=== PATIENT | male | born 1960 | race Asian ===

== ENCOUNTER 2020-12-18 08:38 | Day surgery (SDC) | payer MEDICAID, SELFPAY ==
[~2020-12-18] VITALS: Ht 170.2 cm; Wt 81.6 kg
[2020-12-18] MEDS ORDERED: LR 1,000 ML IV.SOLN IV ONE (10:16)
[2020-12-18] MEDS ORDERED: SEVOFLURANE 15 MIN GAS INH ONE (10:16)
[2020-12-18] MEDS ORDERED: ONDANSETRON HCL 4 MG/2 ML VIAL IVP ONE (10:16)
[2020-12-18] MEDS ORDERED: SUCCINYLCHOLINE CHLORIDE 20 MG/ML(QUELICIN) IVP ONE (10:16)
[2020-12-18] MEDS ORDERED: DEXAMETHASONE SOD PHOSPHATE 4 MG/ML VIAL IVP ONE (10:16)
[2020-12-18] MEDS ORDERED: NS IRRIG SOLN 1000 ML IR ONE (10:16)
[2020-12-18] MEDS ORDERED: LIDOCAINE 2%, 20 ML MDV INJ ONE (10:16)
[2020-12-18] MEDS ORDERED: LIDOCAINE 1% 10 MG/ML, 20 ML MDV INJ ONE (10:16)
[2020-12-18] MEDS ORDERED: LIDOCAINE/EPI 1% 1:100000 20 ML VIAL INJ ONE (10:16)
[2020-12-18] MEDS ORDERED: PROPOFOL 200MG/ 20ML VIAL (DIPRIVAN) IV ONE (10:16)
[2020-12-18] MEDS ORDERED: ROCURONIUM BROMIDE 10 MG/ML (ZEMURON) IV ONE (10:16)
[2020-12-18] MEDS ORDERED: MIDAZOLAM HCL 5 MG/5 ML VIAL IVP ONE (10:16)
[2020-12-18] MEDS ORDERED: fentaNYL CITRATE 250 MCG/5 ML AMP IV ONE (10:16)
[2020-12-18] MEDS ORDERED: ACETAMINOPHEN I.V. 1000 MG 100 ML IV ONE (11:24)
[2020-12-18] MEDS: LR 1,000 ML IV SCH ×2 (11:30→21:30)
[2020-12-18] MEDS ORDERED: METOCLOPRAMIDE HCL 10 MG/2 ML VIAL IVP PRN (11:30)
[2020-12-18] MEDS ORDERED: HYDROmorphone 1 MG/ML INJ. CARTRIDGE IVP PRN ×2 (11:30)
[2020-12-18] MEDS ORDERED: ONDANSETRON HCL 4 MG/2 ML VIAL IVP PRN ×3 (11:30→15:30)
[2020-12-18] MEDS ORDERED: MIDAZOLAM HCL 2 MG/2 ML VIAL (VERSED) IVP PRN (11:30)
[2020-12-18] MEDS ORDERED: LABETALOL 100 MG/ 20ML VIAL IVP PRN (11:30)
[2020-12-18] MEDS ORDERED: MEPERIDINE HCL/PF 25 MG/ML DISP.SYRIN IVP PRN (11:30)
[2020-12-18] MEDS ORDERED: hydrALAZINE HCL 20 MG/ML VIAL IVP PRN (11:30)
[2020-12-18] MEDS ORDERED: HYDROcodone/ACETAMIN 5-325 MG TAB (NORCO/ VICODIN) PO PRN ×4 (15:00→15:30)
[2020-12-18] MEDS ORDERED: 0.45% NACL 1,000 ML IV SCH ×2 (15:00→15:16)
[2020-12-18] MEDS ORDERED: KCL 20 mEq in 0.45% NS 1000 mL 1,000 ML IV SCH (15:00)
[2020-12-18] MEDS ORDERED: MORPHINE 2 MG/ML INJ. SYRINGE IVP PRN ×2 (15:00→15:30)
[2020-12-18] MEDS: 0.45% NACL 1,000 ML IV SCH (15:30)
--- NOTE | 2020-12-18 16:10 | NUR ---
received pt from PACU,awake,alert,alert,s/p total thyroidectomy,dressing in lower neck dry and intact,pt verbalized in slow low tone voice,able to make needs known,vss,needs attended,call light & personal item within pt reach,safety maintained.
[2020-12-18 16:27] VITALS: BP_SYST 124
[2020-12-18] MEDS ORDERED: CALCIUM 500 MG/TAB PO ONE (17:00)
[2020-12-18] MEDS ORDERED: calcitrioL 0.25 MCG CAPSULE PO ONE (17:00)
[2020-12-18] MEDS ORDERED: CALCIUM 500 MG/TAB PO SCH (17:00)
--- NOTE | 2020-12-18 17:00 | NUR ---
came and seen pt at bedside,applied ice pack on incision in neck per dr jackson.labs ordered pending, said he's going to call to follow up results
[2020-12-18 18:11] LABS: ALBUMIN 3.3 g/dL (3.4-4.8); CALCIUM 8.3 mg/dL (8.4-11.0)
--- NOTE | 2020-12-18 19:21 | NUR ---
pt eating well for dinner clear liquid diet,sleeping well in bed,report endorsed to wax specialist nurse.
[2020-12-18 20:00] VITALS: BP_SYST 141
[2020-12-18] MEDS ORDERED: MUPIROCIN 2% TOPICAL OINTMENT 22 GM TP SCH (21:00)
[2020-12-18] MEDS: KCL 20 mEq in 0.45% NS 1000 mL 1,000 ML IV SCH (21:15)
[2020-12-18] MEDS: MUPIROCIN 2% TOPICAL OINTMENT 22 GM TP SCH (21:16)
[2020-12-18] MEDS: CALCIUM 500 MG/TAB PO SCH (21:16)
--- NOTE | 2020-12-18 22:10 | NUR ---
PATIENT IN BED. NO ACUTE DISTRESS NOTED. NO COMPLAINT OF PAIN OR DISCOMFORT. CALLED TO CHECK CURRENT STATUS. WILL CONTINUE TO MONITOR. THIS NURSE ASSISTED PATIENT WITH A BATH.
[2020-12-19] VITALS: BP_SYST 130
[2020-12-19] MEDS: 0.45% NACL 1,000 ML IV SCH (04:00)
[2020-12-19] MEDS: LR 1,000 ML IV SCH (04:00)
[2020-12-19] MEDS: KCL 20 mEq in 0.45% NS 1000 mL 1,000 ML IV SCH (05:16)
[2020-12-19 06:54] LABS: BASOPHILS % (AUTO) 0.2 % (0.0-2.0); HEMATOCRIT 41.2 % (36-54); HEMOGLOBIN 14.1 g/dL (14.0-18.0); LYMPHOCYTES # (AUTO) 2.4 K/uL (1.0-5.5); LYMPHOCYTES % (AUTO) 15.4 % (20.5-51.5); MEAN CORPUSCULAR HEMOGLOBIN 35 pg (27-31); MEAN CORPUSCULAR HGB CONC 34 % (32-36); MEAN CORPUSCULAR VOLUME 102 fL (79.0-98.0); MONOCYTES # (AUTO) 1.2 K/uL (0.0-1.0); MONOCYTES % (AUTO) 7.8 % (1.7-9.3); NEUTROPHILS # (AUTO) 11.9 K/uL (1.8-7.7); NEUTROPHILS % (AUTO) 76.6 % (40.0-70.0); PLATELET COUNT (AUTO) 216 K/uL (130-430); RED BLOOD CELL COUNT(AUTO) 4.02 MIL/uL (4.2-6.2); RED CELL DISTRIBUTION WIDTH 13.9 % (9.0-15.0); WHITE BLOOD COUNT (AUTO) 15.6 K/uL (4.8-10.8)
[2020-12-19 07:13] LABS: ALBUMIN 2.9 g/dL (3.4-4.8); CALCIUM 8.6 mg/dL (8.4-11.0); CREATININE 1.23 mg/dL (0.55-1.30); POTASSIUM 4.2 mmol/L (3.5-5.1)
--- NOTE | 2020-12-19 08:00 | NUR ---
INITIAL NOTE: PATIENT IS ALERT, ORIENTED x4, HAVING SORE THROAT. HE IS OND5 05/02 NS+KCL IVF AT 80 ML/HR, INFUSING WELL VIA LEFT FOREARM IV SITE , NO SIGN OF INFILTRATION. Addendum: 12/19/20 at 1500 by Sonal Haskins RN ANTERIOR NECK INCISION IS WITH STIR STRIP WITH DRY GAUZE COVER ,THERE IS SMALL DRY BLOOD, NO ACTIVE BLEEDING.
[2020-12-19 08:05] VITALS: BP_SYST 129
[2020-12-19] MEDS ORDERED: calcitrioL 0.25 MCG CAPSULE PO SCH ×2 (09:00)
[2020-12-19] MEDS: CALCIUM 500 MG/TAB PO SCH ×2 (09:03→13:40)
[2020-12-19] MEDS: MUPIROCIN 2% TOPICAL OINTMENT 22 GM TP SCH ×2 (09:04→09:58)
--- NOTE | 2020-12-19 09:30 | NUR ---
ROUND: DR. PRIETO MAKES ROUND AND STATES IF PATIENT TOLERATES SOLID DIET WELL HE CAN BE DISCHARGED HOME. AND THE OFFICE WILL CALL THE PATIENT FORM APPOINTMENT. ALSO STATES TO DC ALL IVF.
[2020-12-19 11:52] VITALS: BP_SYST 144
[2020-12-19 12:36] LABS: BASOPHILS # (AUTO) 0.1 K/uL (0.0-0.2); BASOPHILS % (AUTO) 0.6 % (0.0-2.0); EOSINOPHILS % (AUTO) 0.1 % (0.0-4.0); HEMATOCRIT 40.6 % (36-54); HEMOGLOBIN 13.9 g/dL (14.0-18.0); LYMPHOCYTES # (AUTO) 3.1 K/uL (1.0-5.5); LYMPHOCYTES % (AUTO) 18.7 % (20.5-51.5); MEAN CORPUSCULAR HEMOGLOBIN 35 pg (27-31); MEAN CORPUSCULAR HGB CONC 34 % (32-36); MEAN CORPUSCULAR VOLUME 102 fL (79.0-98.0); MONOCYTES # (AUTO) 1.5 K/uL (0.0-1.0); MONOCYTES % (AUTO) 9.3 % (1.7-9.3); NEUTROPHILS # (AUTO) 11.7 K/uL (1.8-7.7); NEUTROPHILS % (AUTO) 71.3 % (40.0-70.0); PLATELET COUNT (AUTO) 212 K/uL (130-430); RED BLOOD CELL COUNT(AUTO) 3.98 MIL/uL (4.2-6.2); RED CELL DISTRIBUTION WIDTH 13.5 % (9.0-15.0); WHITE BLOOD COUNT (AUTO) 16.4 K/uL (4.8-10.8)
--- NOTE | 2020-12-19 13:00 | NUR ---
PATIENT TOLERATES REGULAR DIET WELL, NO N/V.
[2020-12-19] MEDS ORDERED: CALC0.258 PO (13:58)
[2020-12-19] MEDS ORDERED: LEVO100T PO (13:59)
[2020-12-19] MEDS ORDERED: OSCD500 PO (14:00)
[2020-12-19] MEDS ORDERED: HYDR-3917 PO (14:00)
[2020-12-19 14:03] VITALS: BP_SYST 134
--- NOTE | 2020-12-19 14:58 | NUR ---
D/C Patient Patient given medication reconciliation form and D/C instructions. Patient verbalized understanding. MD discussed with patient the results and treatment provided. Ambulatory with steady gait for discharge to home. Patient in stable condition, ID band removed. IV catheter removed, intact and dressing applied, no active bleeding. Rx of given. Patient educated on pain management. All belongings sent with patient.
== END 2020-12-19 13:55 | disposition home or self-care (01) ==
LOC: SDS 08:38 → SMU 08:39 → STU 18:14 → SDS 12-19 13:55
PROVIDERS: ATTEND Otolaryngology
DX: D44.0 Neoplasm of uncertain behavior of thyroid gland (principal); R13.12 Dysphagia, oropharyngeal phase; E78.00 Pure hypercholesterolemia, unspecified; F17.218 Nicotine dependence, cigarettes, with other nicotine-induced disorders; Z79.899 Other long term (current) drug therapy; Z20.822 Contact with and (suspected) exposure to COVID-19
CPT/HCPCS: 36415; 60240; 80048; 82040; 82310; 85025; 87081; 88307; J0131; J0330; J1100; J2001 ×2; J2250; J2270; J2405; J2704; J3010; J7120; U0003; J3480